=== PATIENT | female | born 1995 | race African-American/Black ===

== ENCOUNTER 2016-10-23 04:19 | Emergency (ER) | payer SELFPAY ==
[~2016-10-23] VITALS: Ht 162.6 cm; Wt 50.0 kg
[2016-10-23 04:25] VITALS: BP 104/61
== END 2016-10-23 09:15 | disposition left against medical advice (07) ==
LOC: ER 04:19
DX: F10.10 Alcohol abuse, uncomplicated (principal); Z53.21 Procedure and treatment not carried out due to patient leaving prior to being seen by health care provider